=== PATIENT | female | born 1990 | race Caucasian/White ===

== ENCOUNTER 2017-01-08 08:32 | Emergency (ER) | payer BC, MEDICAID ==
[2017-01-08 08:53] VITALS: RESP 18; TEMP 98.6
[2017-01-08 09:27] LABS: COLOR YELLOW; LEUKOCYTE ESTERASE,URINE 1+ (NEGATIVE); NITRITE,URINE NEGATIVE (NEGATIVE)
[2017-01-08 09:42] LABS: BACTERIA 1+ /hpf (NONE SEEN); MUCUS 2+ /lpf (NONE-1+); RBC,URINE 0-1 /hpf (0-3); RENAL EPITHELIAL CELLS OCCASIONAL /hpf (NONE SEEN); WBC,URINE 15-25 /hpf (0-3)
--- NOTE | 2017-01-08 09:58 | EDPHY ---
H & P Time Seen by Provider: 01/08/17 09:14 HPI/ROS: This patient arrives by private vehicle for evaluation of genitourinary complaints. She explains that she had unprotected sex 4 days prior to arrival and subsequently developed vaginal discharge and some pain in the vaginal area. She was seen in outlying urgent care on Saturday, 2 days prior to arrival where she had GC and Chlamydia studies sent and pending and was diagnosed with yeast vaginosis started on fluconazole but is not confident about the diagnosis and has developed significant swelling and pain to the external genitalia since her visit to the urgent care. She now reports associated dysuria when she urinates but she is not sure if that is due to painful genitalia surrounding urethra or if it is actually dysuria from urethral pain. ROS: No fevers or chills. No other constitutional symptoms HEENT: No complaints pulmonary: No complaints Cardiovascular: No complaints GI: No nausea or vomiting. She reports normal bowel movements. : No vaginal bleeding. She is not had menses since her implanted control was placed a few years ago 7 point ROS is otherwise negative. Past Medical/Surgical History: otherwise healthy No previous STDs. 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 No drug use. Smoking Status: Never smoked Physical Exam: General Appearance: Alert, no distress. Eyes: Pupils equal and round no pallor or injection.No conjunctival injection or eye discharge ENT, Mouth: Mucous membranes moist. Respiratory: There are no retractions, lungs are clear to auscultation. Cardiovascular: Regular rate and rhythm. Gastrointestinal: Abdomen is soft and nontender, no masses, bowel sounds normal. : Patient has raised papules on shaved mons pubis some with small ulcerations to 3 mm in size and then superficial ulcerations in the labia minora with small amount of clearish discharge. I obtained swabs from the dermal ulcerations back: No CVA tenderness Neurological: GCS 15 Skin: Warm and dry, no rashes. Extremities are symmetrical, full range of motion. Psychiatric: mood and affect normal DIFFERENTIAL DIAGNOSIS: After history and physical exam differential diagnosis was considered for genital herpes, folliculitis, bacterial vaginosis, contact dermatitis Constitutional: Initial Vital Signs Temperature (C) 37.0 C 01/08/17 08:51 Heart Rate 56 L 01/08/17 08:51 Respiratory Rate 18 01/08/17 08:51 Blood Pressure 126/86 H 01/08/17 08:51 O2 Sat (%) 99 01/08/17 08:51 O2 Delivery Mode Room Air Allergies/Adverse Reactions: No Known Allergies Allergy (Unverified 01/08/17 08:50) Home Medications: Medication Instructions Recorded Cephalexin [Keflex (*)] 500 mg PO TID #21 cap 01/08/17 Fluconazole 01/08/17 Lidocaine [Lidocaine 4% cream] 1 inch TP TID PRN #15 cream..g. 01/08/17 Miconazole 01/08/17 Valacyclovir HCl [Valtrex] 1,000 mg PO BID #20 tab 01/08/17 MDM/Departure - [facility] ED Course/Re-evaluation: given recent sexual exposure and characteristic lesions, I think this patient has genital herpes and counseled regarding this. Because of the significantly tender vaginal introitus I elected to hold on cervical swab says this was already done at the urgent care 3 days ago with results pending. Will start the patient on Valtrex, ibuprofen, Tylenol and lidocaine cream for pain control. - Depart Disposition: Home, Routine, Self-Care Clinical Impression: Genital lesion, female, Cystitis Condition: Good Instructions: Genital Herpes Simplex (ED), Urinary Tract Infection in Women (ED ) Additional Instructions: Diagnoses: 1. Genital lesions 2. Bladder infection Plan: Keflex antibiotic Valtrex antiviral Ibuprofen Tylenol for pain. Lidocaine cream in addition as needed. Lab tests should be back in 2 days. Return for any significant worsening despite treatment plan Prescriptions: Cephalexin [Keflex (*)] 500 mg PO TID #21 cap Lidocaine [Lidocaine 4% cream] 1 inch TP TID PRN #15 cream..g. PRN Reason: genital lesions Valacyclovir HCl [Valtrex] 1,000 mg PO BID #20 tab Referrals: NONE *PRIMARY CARE P,. [Primary Care Provider] - As per Instructions
[2017-01-08 10:18] VITALS: BP 115/77; PULSE 65; O2SAT 97
[2017-01-09 19:47] LABS: SPECIMEN SOURCE VAGINAL
[2017-01-09 22:24] LABS: HSV 1/2 IGM AB Negative (Negative)
== END 2017-01-08 10:17 | disposition home or self-care (01) ==
LOC: CED 08:32
DX: N30.90 Cystitis, unspecified without hematuria (principal); L98.9 Disorder of the skin and subcutaneous tissue, unspecified; B96.89 Other specified bacterial agents as the cause of diseases classified elsewhere
CPT/HCPCS: 81003-PO; 81015-PO; 81025-PO; 86694-90; 87529-90